=== PATIENT | male | born 1945 | race Caucasian/White ===

== ENCOUNTER 2022-10-17 09:13 | Outpatient (CLI) | payer MEDICARE, SELFPAY ==
[2022-10-17 19:37] LABS: Alanine Aminotransferase 17 U/L (6-50); Albumin Level 4.2 g/dL (3.5-5.1); Alkaline Phosphatase 43 U/L (38-126); Anion Gap 6 mmol/L (8-16); Aspartate Amino Transferase 36 U/L (17-59); Bilirubin,Total 0.6 mg/dL (0.2-1.3); Blood Urea Nitrogen 29 mg/dL (9-20); Calcium 8.9 mg/dL (8.4-10.2); Carbon Dioxide 29 mmol/L (22-30); Chloride 106 mmol/L (98-107); Estimated Glomerular Filt Rate > 60; Glucose 84 mg/dL (65-110); Potassium 4.2 mmol/L (3.4-5.0); Sodium 141 mmol/L (137-145)
[2022-10-17 20:40] LABS: Hemoglobin A1C 5.6 % (<5.7)
== END 2022-10-17 09:14 | disposition home or self-care (01) ==
LOC: ANHGOSHLAB 09:15
PROVIDERS: PCP Family Medicine; Visit Provider Family Medicine
DX: R73.03 Prediabetes (principal); I10 Essential (primary) hypertension; Z79.899 Other long term (current) drug therapy
CPT/HCPCS: 36415; 80053; 83036

== ENCOUNTER 2023-01-09 06:08 | Day surgery (SDC) | payer MEDICARE, SELFPAY ==
[2022-12-16 10:22] VITALS: BMI 24.0
[2022-12-31 09:56] VITALS: BMI 24.0
--- NOTE | 2023-01-09 07:32 | P.PNAN_ITS ---
Anes - Initial Pre Proc Eval Procedure: Operation Date: 01/09/23 08:30 Proposed Procedures p Screening Colonoscopy - Tiburcio Fish MD Date/Time: 01/09/23 07:32 Surgeon: Tiburcio Fish MD Pre Op Diagnosis: Neoplasm Screening Patient Data Age: 77 Gender: M Height: 1.83 m Weight: 77.2 kg Allergies Allergy/AdvReac Type Severity Reaction Status Date / Time NKDA Allergy Unknown Unknown Uncoded 01/09/23 07:01 Home Medications Medication Instructions Recorded Confirmed Type hydrochlorothiazide 12.5 mg tablet 12.5 mg PO DAILY #90 tabs 10/07/22 01/09/23 Rx lisinopril 10 mg tablet 10 mg PO DAILY #90 tabs 10/07/22 01/09/23 Rx simvastatin 20 mg tablet 20 mg PO QHS #90 tabs 01/03/23 01/09/23 Rx Patient hx anesthesia problems: none Family hx anesthesia problems: none Results Review: All pre-operative results and documents have been reviewed as part of the pre- operative evaluation. [facility] Past Medical History Medical History BPH with elevated PSA Discoloration of skin of lower leg (~03/2021) localized above the ankle Hyperlipidemia Hypertension Varicose veins of left lower leg Social History Social History Social History: Caffeine- tea Smoking status: Never smoker Second hand tobacco smoke exposure: No Alcohol intake: never Substance use: never Substance use type: does not use Lack of Transportation: No Lack of Food: Never True Current Housing: I Have Housing Concerned About Future Housing: No Difficulty Paying Gas/Electric Bills: No Difficulty Paying for Meds: No Currently Unemployed: YES Education: Bachelor's Degree Difficulty w/ Childcare or Family Care: No Living arrangements: alone Spiritual care concerns: No Anes - Eval Final PreProcedure Day of Procedure 01/09/23 07:32 Patient weight: normal Heart: regular rate and rhythm Lungs: clear to auscultation and normal air movement Airway: Mallampati scale class II Neurological: alert and oriented Last oral intake: >/= 8 hours ASA classification: II Emergent: no Anesthetic plan: proceed Anesthesia type and monitoring: general GIVS and standard monitoring Results Review: All pre-operative results and documents have been reviewed as part of the pre- operative evaluation. Informed Consent: The patient's anesthetic plan and its attendant risks and benefits were discussed with the patient/family/POA. Questions were solicited and answers provided to the satisfaction of the patient/family/POA.
[2023-01-09 07:45] VITALS: BP 138/77; PULSE 87; RESP 16; TEMP 36.6; O2SAT 100
[2023-01-09] MEDS: LACTATED RINGERS 1,000 ML 150 ML IV CONT (07:46)
--- NOTE | 2023-01-09 08:01 | PM.HPGS ---
History of Present Illness History of Present Illness Consent: Risks, benefits, and alternatives have been discussed and questions answered. Patient agrees to proceed with procedure. Chief complaint: Neoplasm Screening Narrative: Alec Greene is a 77 year old male here for screening colonoscopy, last one about 10 years ago Review of Systems Constitutional: Constitutional: Denies headache(s) and Denies weakness Eyes: Eyes: Denies blurry vision ENT: Reports Normal hearing present, Denies headache(s) and Denies neck pain Cardiovascular: Cardiovascular: Denies chest pain and Denies dyspnea Respiratory: Respiratory: Denies dyspnea Gastrointestinal: Gastrointestinal: Reports no additional gastrointestinal complaints Genitourinary: Genitourinary: Denies dysuria Musculoskeletal: Musculoskeletal: Denies neck pain Integumentary/Breasts: Skin/Breast: Denies dry skin Neurologic: Reports Normal hearing present, Denies headache(s) and Denies weakness Psychiatric: Psychiatric: Denies anxiety Endocrine: Endocrine: Denies change in body appearance Hematologic/Lymphatic: Hematologic/Lymphatic: Denies easy bleeding Allergic/Immunologic: Allergic/Immunologic: Denies urticaria PMFSH Past Medical History Medical History (Updated 01/09/23 @ 08:02 by Tiburcio Fish MD) BPH with elevated PSA Colon cancer screening Discoloration of skin of lower leg (~03/2021) localized above the ankle Hyperlipidemia Hypertension Varicose veins of left lower leg Social History Social History Social History: Caffeine- tea Smoking status: Never smoker Second hand tobacco smoke exposure: No Alcohol intake: never Substance use: never Substance use type: does not use Lack of Transportation: No Lack of Food: Never True Current Housing: I Have Housing Concerned About Future Housing: No Difficulty Paying Gas/Electric Bills: No Difficulty Paying for Meds: No Currently Unemployed: YES Education: Bachelor's Degree Difficulty w/ Childcare or Family Care: No Living arrangements: alone Spiritual care concerns: No Meds Home Medications and Allergies Home Medications Medication Instructions Recorded Confirmed Type hydrochlorothiazide 12.5 mg tablet 12.5 mg PO DAILY #90 tabs 10/07/22 01/09/23 Rx lisinopril 10 mg tablet 10 mg PO DAILY #90 tabs 10/07/22 01/09/23 Rx simvastatin 20 mg tablet 20 mg PO QHS #90 tabs 01/03/23 01/09/23 Rx Allergies Allergy/AdvReac Type Severity Reaction Status Date / Time NKDA Allergy Unknown Unknown Uncoded 01/09/23 07:01 Vital Signs Vital Signs - 24 hr 01/09/23 07:45 Temperature 97.8 F Pulse Rate 87 Respiratory Rate 16 Blood Pressure 138/77 Pulse Oximetry 100 Oxygen Delivery Room Air Exam Const: General: comfortable and no acute distress HENMT: Face/Nose/Sinus: Normal nares present Eyes: General: appearance normal, both eyes and all related structures Neck: Neck: no JVD Resp: Auscultation: clear to auscultation bilaterally Cardio: Rate: regular rate Rhythm: regular rhythm GI: Inspection: non-distended GI Palp: Yes Soft to palpation Skin: General skin exam: normal color Neuro: General: gait normal Speech: normal speech Extrem: General: normal to inspection Psych: Mental Status: mental status grossly normal Assessment and Plan Assessment and plan (1) Colon cancer screening: Code(s): Z12.11 - Encounter for screening for malignant neoplasm of colon Status: Acute Assessment and Plan: colonoscopy
[2023-01-09 08:23] VITALS: BP 108/65; PULSE 82; RESP 12; TEMP 36.2; O2SAT 95
[2023-01-09 08:33] VITALS: BP 106/70; PULSE 88; RESP 12; O2SAT 98
[2023-01-09 08:46] VITALS: BP 121/74; PULSE 85; RESP 12; O2SAT 99
--- NOTE | 2023-01-09 11:02 | WPDANESPN ---
Anes - Prog Note Post-Op Date/Time: 01/09/23 11:02 Cardiovascular status: normal Respiratory status: normal Airway patency: baseline Mental status: baseline Post-Op hydration status: normal Vital Signs: Last Vital Signs Temp 36.2 C L 01/09/23 08:23 Pulse 85 01/09/23 08:46 Resp 12 01/09/23 08:46 BP 121/74 01/09/23 08:46 Pulse Ox 99 01/09/23 08:46 O2 Del Method Room Air 01/09/23 08:46 Pain Score (VAS): 0 I/O: Intake & Output 01/08/23 01/09/23 01/09/23 23:59 07:59 15:59 Intake Total 600 Balance 600 Post-procedural complaints: none Patient Feedback: Patient satisfied with anesthetic care. Other Findings: Patient vital signs back to baseline. Patient denies nausea and vomiting. Patient's pain under control. Patient OK for discharge.
== END 2023-01-09 08:50 | disposition home or self-care (01) ==
PROVIDERS: PCP Family Medicine; Visit Provider Internal Medicine Gastroenterology
PROC: 0DJD8ZZ Inspection of Lower Intestinal Tract, Via Natural or Artificial Opening Endoscopic (ICD-10-PCS; CPT 45378; principal; 2023-01-09 08:30)
DX: Z12.11 Encounter for screening for malignant neoplasm of colon (principal); K64.8 Other hemorrhoids
CPT/HCPCS: 45378

== ENCOUNTER 2024-03-01 11:01 | Outpatient (CLI) | payer MEDICARE, SELFPAY ==
[2024-03-01 19:57] LABS: Alanine Aminotransferase 19 U/L (6-50); Albumin Level 4.5 g/dL (3.5-5.1); Alkaline Phosphatase 47 U/L (38-126); Anion Gap 10 mmol/L (4-12); Aspartate Amino Transferase 32 U/L (17-59); Bilirubin,Total 0.8 mg/dL (0.2-1.3); Blood Urea Nitrogen 24 mg/dL (9-20); Calcium 9.4 mg/dL (8.4-10.2); Carbon Dioxide 28 mmol/L (22-30); Chloride 103 mmol/L (98-107); Estimated Glomerular Filt Rate > 60; Glucose 97 mg/dL (65-110); Sodium 141 mmol/L (137-145)
[2024-03-01 21:19] LABS: Hemoglobin A1C 5.9 % (<5.7)
[2024-03-01 22:11] LABS: Free T4 Free Thyroxine Reflex 0.75 ng/dL (0.78-2.19)
== END 2024-03-01 11:02 | disposition home or self-care (01) ==
LOC: ANHGOSHLAB 11:01
PROVIDERS: PCP Family Medicine; Visit Provider Family Medicine
DX: E78.5 Hyperlipidemia, unspecified (principal); I10 Essential (primary) hypertension; R73.03 Prediabetes; R79.89 Other specified abnormal findings of blood chemistry
CPT/HCPCS: 36415; 80053; 83036; 84439; 84443

== ENCOUNTER 2024-03-13 07:17 | Outpatient (CLI) | payer MEDICARE, SELFPAY ==
[2024-03-13 09:47] LABS: Free T4 Free Thyroxine 0.78 ng/mL (0.78-2.19)
[2024-03-15 17:25] LABS: Total Triiodothyronine (T3) 3.57 NG/ML (0.97-1.69)
[2024-03-17 08:17] LABS: Thyroid Peroxidase Antibodies 1 IU/mL (<9)
[2024-03-17 16:22] LABS: Thyrotropin Receptor Antibody <1.00 IU/L (< OR = 2.00)
== END 2024-03-13 07:18 | disposition home or self-care (01) ==
PROVIDERS: PCP Family Medicine; Visit Provider Family Medicine
DX: E78.5 Hyperlipidemia, unspecified (principal); R79.89 Other specified abnormal findings of blood chemistry
CPT/HCPCS: 36415; 83519; 84439; 84443; 84445; 84480; 86800

== ENCOUNTER 2024-08-31 11:17 | Outpatient (CLI) | payer MEDICARE, SELFPAY ==
--- NOTE | ~2024-08-31 | XR_ITS ---
Cervical Spine: AP, lateral, open-mouth views Clinical History: Pain Findings: The normal lordotic curve is maintained. No fracture or sublocation. There is advanced dege nerative disc narrowing from C4 through C7. There are anterior flowing osteophytes from C4 through C7 . There is moderate facet arthropathy. No instability seen on flexion or extension. Pre-vertebral sof t tissues are unremarkable. 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 No fracture, subluxation, or instability evident. Reviewed, dictated and finalized at location M. 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 No fracture, subluxation, or instability evident.
--- NOTE | ~2024-08-31 | XR_ITS ---
XR finger 3rd RT min 2V Ordering provider: Bren Pa MD History: . Pain Rt 3rd finger . Comparison: None. FINDINGS: BONES: No acute fracture or dislocation. JOINT SPACES: Severe osteoarthritic changes with minimal [id number] subluxation in the proximal int erphalangeal joint of the right middle finger. SOFT TISSUES: Normal. IMPRESSION: No acute osseous abnormality. 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 Reviewed, dictated and finalized at location A. IMPRESSION: No acute osseous abnormality. Severe osteoarthritic changes of the proximal interphalangeal joint of the righ t middle finger.
== END 2024-08-31 11:18 | disposition home or self-care (01) ==
LOC: GOSHIMG 11:18
PROVIDERS: PCP Family Medicine; Visit Provider Family Medicine
DX: M19.041 Primary osteoarthritis, right hand (principal); M47.892 Other spondylosis, cervical region
CPT/HCPCS: 72050; 73140